=== PATIENT | male | born 1990 | race Caucasian/White ===

== ENCOUNTER 2017-05-20 10:23 | Emergency (ER) | payer OTHER ==
[~2017-05-20] VITALS: Ht 188 cm; Wt 82.6 kg
[2017-05-20 10:36] VITALS: BP 139/66
[2017-05-20] MEDS: ONDANSETRON 4 MG/2 ML VIAL IVP ONE (11:25)
[2017-05-20] MEDS: NACL 0.9% 1,000 ML IV SCH (11:25)
[2017-05-20] MEDS: KETOROLAC 30 MG/ML VIAL IVP ONE (11:26)
[2017-05-20] MEDS: PANTOPRAZOLE 40 MG INJ VIAL IVP ONE (11:26)
[2017-05-20] MEDS: MORPHINE SULFATE 2 MG/ML SYR IVP ONE (12:32)
[2017-05-20 12:54] VITALS: BP 149/73
== END 2017-05-20 12:53 | disposition home or self-care (01) ==
LOC: MED 10:23
DX: K59.00 Constipation, unspecified (principal); R11.2 Nausea with vomiting, unspecified; F17.210 Nicotine dependence, cigarettes, uncomplicated; F12.90 Cannabis use, unspecified, uncomplicated; Z91.040 Latex allergy status; Z90.89 Acquired absence of other organs
CPT/HCPCS: 36415; 74176; 80053; 83690; 85025; 85610; 85730; 86886; 86900; 86901; 96361; 96374; 96375; 99285; C9113; J1885; J2270; J2405; J7030

== ENCOUNTER 2017-07-14 20:20 | Emergency (ER) | payer OTHER ==
[~2017-07-14] VITALS: Ht 170.2 cm; Wt 77.4 kg
[2017-07-14 20:26] VITALS: BP 119/72
--- NOTE | 2017-07-14 21:05 | NUR ---
PT TAKEN TO ER BED 10
--- NOTE | 2017-07-14 21:31 | NUR ---
LG VICENTE FOR RECTAL EXAM.
[2017-07-14] MEDS: MORPHINE SULFATE 4 MG/ML SYR IM ONE (21:40)
[2017-07-14] MEDS: ONDANSETRON 4 MG ODT PO ONE (21:40)
[2017-07-14 22:09] LABS: BILIRUBIN,URINE 2+ (NEGATIVE); BLOOD, URINE TRACE-I (NEGATIVE); COLOR,URINE YELLOW (YELLOW); LEUKOCYTE ESTERASE ,URINE NEGATIVE (NEGATIVE); NITRITE, URINE NEGATIVE (NEGATIVE); PH,URINE 5.5 (5.0-9.0); UGLUCOSE NEGATIVE (NEGATIVE)
[2017-07-14 22:13] LABS: APPEARANCE,URINE CLEAR (CLEAR)
[2017-07-14] MEDS: NACL 0.9% 1,000 ML IV ONE (22:19)
[2017-07-14 22:29] LABS: RBC,URINE 0-5 (RARE) /HPF (0-5); WBC,URINE 0-5 (RARE) /HPF (0-5)
--- NOTE | 2017-07-14 23:00 | NUR ---
PT PRESENTS TO ER C/O BACK PAIN THAT RADIATES TO SCOTRUM. PT STATES HE WAS AT WORK AND LIFTED A HEAVY BOX WHEN THE PAIN STARTED. PAIN IS SHARP, 10/10. PT STATES HE HAS N/V/D. PT HAS BURNING ON URINATION AND HAD IT FOR A FEW DAYS. PT DENIES FREQUENCY, URGENCY. PT IN BED RESTLESS AND AGITATED
[2017-07-14 23:07] LABS: HEMATOCRIT 43.3 % (36-52); HEMOGLOBIN 14.5 g/dL (12.0-18.0); MEAN CORPUSCULAR HEMOGLOBIN 32 pg (27-31); MEAN CORPUSCULAR HGB CONC 34 g/dL (33-37); MEAN CORPUSCULAR VOLUME 96 fL (80-94); PLATELET COUNT (AUTO) 258 K/uL (140-450); RED BLOOD CELL COUNT(AUTO) 4.51 MIL/uL (4.20-6.10); RED CELL DISTRIBUTION WIDTH 12.4 % (11.6-13.7); WHITE BLOOD COUNT (AUTO) 8.1 K/uL (4.8-10.8)
[2017-07-14 23:17] LABS: PROTHROMBIN TIME 13.5 secs (10.8-13.4)
[2017-07-14] MEDS: fentaNYL 0.05 MG/ML VIAL IVP ONE (23:19)
[2017-07-14 23:20] LABS: EOSINOPHILS % (MANUAL) 1 % (0-4); LYMPHOCYTES % (MANUAL) 20 % (20-46); MONOCYTES % (MANUAL) 5 % (5-12)
[2017-07-14 23:22] LABS: ANION GAP 16.9 (8-16); CARBON DIOXIDE 22.6 mmol/L (21-32); POTASSIUM 3.5 mmol/L (3.5-5.1)
[2017-07-14 23:23] LABS: CREATININE 0.9 mg/dL (0.7-1.3)
[2017-07-14 23:24] LABS: ALBUMIN 4.3 g/dL (3.4-5.0); TOTAL BILIRUBIN 0.9 mg/dL (0.0-1.0)
[2017-07-14] MEDS: ONDANSETRON 4 MG/2 ML VIAL IVP ONE (23:37)
[2017-07-14] MEDS: diphenhydrAMINE 50 MG/ML VIAL IVP ONE (23:38)
[2017-07-15 00:02] VITALS: BP 119/72
--- NOTE | 2017-07-15 00:02 | NUR ---
Patient discharged with v/s stable. Written and verbal after care instructions given and explained. Patient alert, oriented and verbalized understanding of instructions. Ambulatory with steady gait. All questions addressed prior to discharge. ID band removed. Patient advised to follow up with PMD. Rx of TRAMADOL 50 MG, MOTRIN 800 MG given. Patient educated on indication of medication including possible reaction and side effects. Opportunity to ask questions provided and answered.
== END 2017-07-15 00:02 | disposition home or self-care (01) ==
LOC: MED 20:20
DX: S39.012A Strain of muscle, fascia and tendon of lower back, initial encounter (principal); Z91.040 Latex allergy status; F90.9 Attention-deficit hyperactivity disorder, unspecified type; X50.0XXA Overexertion from strenuous movement or load, initial encounter; Y93.89 Activity, other specified; Y92.89 Other specified places as the place of occurrence of the external cause; Y99.8 Other external cause status
CPT/HCPCS: 36415; 74176; 76870; 80053; 81001; 85025; 85610; 85730; 96361; 96372; 96374; 96375; 99285; J1200; J2270; J2405; J3010; J7030; Q0092; S0119